=== PATIENT | male | born 1975 | race American Indian/Alaskan Native ===

== ENCOUNTER 2017-07-02 12:49 | Emergency (ER) | payer MEDICAID ==
[2017-07-02 13:03] VITALS: BP 145/82
[2017-07-02] MEDS ORDERED: NITROSTAT SL PRN (20:07)
[2017-07-02] MEDS ORDERED: BABY ASPIRIN PO STA (20:07)
--- NOTE | 2017-07-02 20:15 | History and Physical Report ---
History of Present Illness Date of examination: 07/02/17 Chief complaint: Chest pain History of present illness: 70-year-old -[place] male with past medical history significant for CAD status post CABG, hypertension, diabetes presented to the emergency department complaining of left-sided chest pain. The pain started this morning, 10 out of 10 in intensity, with radiation to the left arm, associated with dizziness, diaphoresis and shortness of breath. No alleviating or aggravating factors. Patient took 3 doses of nitroglycerin without improvement. Patient said he was compliant with his cardiac medications. Patient has been followed at [facility]. Currently the patient is chest pain-free. REVIEW OF SYSTEMS: GENERAL: no weight change, no fatigue, no fever HEAD: no head ache EYES: no blurry vision, no acute visual loss EARS: no hearing loss, no discharge, no earache NOSE: no stuffiness, no sneezing, no discharge MOUTH, THROAT AND NECK: no bleeding gums, no sore throat, no swollen neck CARDIAC: As stated in the HPI RESPIRATORY: + shortness of breath, no wheeze, no cough, no sputum, no hemoptysis, no asthma GI: no decreased appetite, no nausea, no vomiting, no dysphagia, no diarrhea, no constipation, no abdominal pain URINARY: no change in frequency, no urgency, no polyuria, no hematuria, no incontinence MUSCULOSKELETAL: no muscle weakness, no pain, no joint stiffness NEUROLOGIC: no loss of sensation/numbness, no tingling, no tremors, no weakness/ paralysis HEMATOLOGIC: no anemia, no easy bruising SKIN: no rashes ENDOCRINE: no heat/cold intolerance, no polyuria, no polydipsia, no thyroid problems, +diabetes PSYCHIATRIC: no anxiety, no depression, no suicidal ideations Past History Past Medical History: CAD, diabetes, hypertension Past Surgical History: CABG Social history: full code. denies: smoking, alcohol abuse, prescription drug abuse, IV drug use Family history: no significant family history Medications and Allergies Allergies Allergy/AdvReac Type Severity Reaction Status Date / Time ibuprofen AdvReac Itching Verified 07/02/17 13:04 Active Meds: Active Medications Heparin Sodium (Porcine) (Heparin) 5,000 unit SUB-Q Q8HR KAYLEY Exam - Physical Exam Narrative exam: Not in cardiopulmonary distress. The patient obese. Vital signs as documented. Head exam is unremarkable. No scleral icterus . Neck is without jugular venous distension, thyromegaly, or carotid bruits. Lungs are clear to auscultation. Cardiac exam reveals regular rate and Rhythm. First and second heart sounds normal. No murmurs, rubs or gallops. Abdominal exam reveals normal bowel sounds, no masses, no organomegaly and no aortic enlargement. Extremities are nonedematous and both femoral and pedal pulses are normal. 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 No focal weakness. - Constitutional Vitals: Temp Pulse Resp BP Pulse Ox 98.6 F 77 16 145/82 98 07/02/17 13:01 07/02/17 13:01 07/02/17 13:01 07/02/17 13:01 07/02/17 13:01 Results - Imaging and Cardiology EKG: image reviewed Assessment and Plan Assessment and plan: Chest pain CAD status post CABG Diabetes mellitus with hyperglycemia - Serial cardiac enzymes and EKG - Cardiology consult - Resume his home medications - Pain control DVT prophylaxis - Heparin Disposition - Admit to telemetry Advance Directives: Yes VTE prophylaxis?: Chemical Plan of care discussed with patient/family: Yes
[2017-07-02] MEDS ORDERED: HEPARIN SUB-Q SCH (22:00)
[2017-07-03] MEDS ORDERED: ASPIRIN PR SCH (10:00)
== END 2017-07-02 13:41 | disposition home or self-care (01) ==
LOC: ED 12:49
DX: Z53.21 Procedure and treatment not carried out due to patient leaving prior to being seen by health care provider (principal)
CPT/HCPCS: 93005; 93010